=== PATIENT | female | born 1935 | race Caucasian/White ===

== ENCOUNTER → 2017-04-29 | Outpatient (CLI) | payer MEDICARE, BC ==
[2015-08-17 11:48] VITALS: BP 141/77
[~2017-04-29] MED LIST: ACETAMINOPHEN-H1 TA1 PO; ALPRAZOLAM0.25 MG PO; ASPIRIN E.C. 8181 M1 PO; ATIVAN 0.50.5 MG/TAB PO; ATORVASTATIN CA20 MG PO; CALCITONIN200 IU/Act NS; DITROPAN 5MG TAB5 MG PO; DITROPAN XL 5MG5 M1 PO; DULCOLAX PO; DURAGESIC25 MCG/PAT TD; DURAGESIC50 MCG/PAT TD; ED BACLOFEN10 MG PO; EFFEXOR XR37.5 MG/CA PO; ENOXAPARIN40 MG/0.1 IJ; FENTANYL 25 MCG TP; LIDODERM 5% PATC1 EA TP; LISINOPRIL20 MG PO; LOPRESSOR 225 MG/TAB PO; LOVENOX 4040 MG/0.4 SQ; MACRODANTIN50 MG/CA1 PO; METOPROLOL SUCC25 MG PO; METOPROLOL TART25 MG PO; MIRAPEX 0.0.125 MG/T PO; MIRAPEX 0.125MG PO; OSCAL 500MG/VI500 MG PO; PERCOCET 325 MG1 TA2 PO; SENNA PLUS 50 M1 TA1 PO; TOPROL XL 50MG50 MG PO; ULTRAM 50MG TAB50 MG PO; XANAX 0.5MG0.5 MG PO; ZOCOR40 MG PO; ZOFRAN 4MG4 MG/2 ML IM
== END ==
LOC: LAB 13:49
DX: R73.9 Hyperglycemia, unspecified (principal)

== ENCOUNTER → 2017-11-11 | Outpatient (CLI) | payer MEDICARE, BC ==
[~2017-11-11] VITALS: Ht 157.5 cm; Wt 71.9 kg
[2017-11-11 14:41] VITALS: BP 128/72
== END ==
LOC: AMSURD 14:26
DX: I10 Essential (primary) hypertension (principal)

== ENCOUNTER → 2017-11-14 | Outpatient (CLI) | payer MEDICARE, BC ==
[2017-11-11 14:41] VITALS: BP 128/72
[2017-11-14 08:06] LABS: ALBUMIN 4.1 g/dL (3.5-5.0); BUN/CREATININE RATIO 17.5 (6.0-26.0); CALCIUM 9.1 mg/dL (8.4-10.2); POTASSIUM 4.1 mmol/L (3.6-5.0); TOTAL BILIRUBIN 0.7 mg/dL (0.2-1.3); TOTAL PROTEIN 7.7 g/dL (6.3-8.2)
== END ==
LOC: LAB 07:41
PROVIDERS: Family Medicine
DX: E78.2 Mixed hyperlipidemia (principal); R73.09 Other abnormal glucose

== ENCOUNTER 2017-12-16 19:32 | Emergency (ER) | payer MEDICARE, BC ==
[~2017-12-16 19:32] MED LIST changes: +LOPRESSOR 550 MG/TAB PO; +MIRALAX17 GM PO; +MIRAPEX0.25 M1 PO; +NEURONTIN300 MG/CAP PO; +VENLAFAXINE HYD75 MG PO
[2017-12-16] MEDS ORDERED: ASPIRIN E.C. 8181 MG PO (19:50)
[2017-12-16] MEDS ORDERED: LOPRESSOR 550 MG/TAB PO (19:50)
[2017-12-16] MEDS ORDERED: CALCIUM + D3 E1 EACH PO (19:51)
[2017-12-16] MEDS ORDERED: NEURONTIN300 M1 PO (19:51)
[2017-12-16] MEDS ORDERED: DITROPAN XL 5MG5 M1 PO (19:51)
[2017-12-16] MEDS ORDERED: VENLAFAXINE HYD75 MG PO (19:52)
[2017-12-16] MEDS ORDERED: LIPITOR20 M2 PO (19:52)
[2017-12-16] MEDS ORDERED: XANAX0.5 M1 PO (19:53)
[2017-12-16] MEDS ORDERED: MIRAPEX0.25 M1 PO (19:53)
[2017-12-16] MEDS ORDERED: MOTRIN IB200 M1 PO (19:54)
[2017-12-16 20:30] LABS: BASO # 0.1 (0.02-0.10); EOS # 0.2 (0.04-0.40); EOS % 2.9 % (1.0-5.0); HEMATOCRIT 41.2 % (37.0-47.0); HEMOGLOBIN 13.6 g/dL (12.5-16.0); LYMPH# 2.6 (1.50-4.00); MEAN CELL VOLUME 89 fl (78-100); MEAN CORPUSCULAR HEMOGLOBIN 29 pg (27-31); MEAN CORPUSCULAR HGB CONC 33 g/dL (33-37); MEAN PLATELET VOLUME 11.3 fl (7.4-10.4); MONO # 0.8 (0.20-0.80); NEU # 4.7 (1.40-6.50); PLATELET COUNT 240 K/mm3 (130-400); RED BLOOD COUNT 4.65 M/mm3 (4.10-5.30); RED CELL DISTRIBUTION WIDTH 13.6 % (11.5-14.5); WHITE BLOOD COUNT 8.3 K/mm3 (4.8-10.8)
[2017-12-16 20:38] LABS: D-DIMER 0.96 mg/L FEU (0.15-0.50)
[2017-12-16 20:39] LABS: ALBUMIN 3.3 g/dL (3.5-5.0); CALCIUM 9.3 mg/dL (8.4-10.2); POTASSIUM 3.8 mmol/L (3.6-5.0); TOTAL BILIRUBIN 0.5 mg/dL (0.2-1.3)
[2017-12-17 00:10] VITALS: BP 128/74
== END 2017-12-17 00:10 | disposition short-term general hospital (02) ==
LOC: ED 19:32
PROVIDERS: Family Medicine
DX: I24.9 Acute ischemic heart disease, unspecified (principal); I10 Essential (primary) hypertension; E11.9 Type 2 diabetes mellitus without complications; E78.5 Hyperlipidemia, unspecified; Z79.82 Long term (current) use of aspirin; S46.002A Unspecified injury of muscle(s) and tendon(s) of the rotator cuff of left shoulder, initial encounter; W19.XXXA Unspecified fall, initial encounter; Z96.653 Presence of artificial knee joint, bilateral
CPT/HCPCS: Q9967

== ENCOUNTER → 2018-02-02 | Outpatient (CLI) | payer MEDICARE, BC ==
[~2018-02-02] MED LIST changes: +ASPIRIN E.C. 8181 MG PO; +CALCIUM + D3 E1 EACH PO; +LIPITOR20 M2 PO; +MOTRIN IB200 M1 PO; +NEURONTIN300 M1 PO; +XANAX0.5 M1 PO
[2018-02-02 14:31] LABS: BUN/CREATININE RATIO 22.5 (6.0-26.0); CALCIUM 9.5 mg/dL (8.4-10.2); POTASSIUM 4.6 mmol/L (3.6-5.0)
== END ==
LOC: RAD 14:07
PROVIDERS: Internal Medicine Cardiovascular Disease
DX: K44.9 Diaphragmatic hernia without obstruction or gangrene (principal); M43.8X4 Other specified deforming dorsopathies, thoracic region

== ENCOUNTER → 2018-02-08 | Outpatient (CLI) | payer MEDICARE, BC ==
[2018-02-08 15:31] LABS: ALBUMIN 4.1 g/dL (3.5-5.0); BUN/CREATININE RATIO 24.9 (6.0-26.0); CALCIUM 10.1 mg/dL (8.4-10.2); POTASSIUM 4.6 mmol/L (3.6-5.0); TOTAL BILIRUBIN 0.4 mg/dL (0.2-1.3); TOTAL PROTEIN 7.5 g/dL (6.3-8.2)
== END ==
LOC: LAB 14:43
PROVIDERS: Family Medicine
DX: E78.2 Mixed hyperlipidemia (principal); R73.09 Other abnormal glucose; R73.01 Impaired fasting glucose; K76.89 Other specified diseases of liver; K80.20 Calculus of gallbladder without cholecystitis without obstruction

== ENCOUNTER → 2018-02-09 | Outpatient (CLI) | payer MEDICARE, BC | LOC: RAD 09:35 | DX: K76.89 Other specified diseases of liver (principal); K80.20 Calculus of gallbladder without cholecystitis without obstruction ==

== ENCOUNTER → 2018-03-01 | Outpatient (CLI) | payer MEDICARE, BC ==
[2018-03-01 08:36] LABS: BUN/CREATININE RATIO 13.1 (6.0-26.0); CALCIUM 9.2 mg/dL (8.4-10.2); CARBON DIOXIDE 31 mmol/L (22-30); GLUCOSE 134 mg/dL (65-105); POTASSIUM 4.1 mmol/L (3.6-5.0); SODIUM 133 mmol/L (137-145)
== END ==
LOC: LAB 08:10
PROVIDERS: Internal Medicine Cardiovascular Disease
DX: E87.1 Hypo-osmolality and hyponatremia (principal)

== ENCOUNTER → 2018-04-26 | Outpatient (CLI) | payer MEDICARE, BC | LOC: LAB 12:16 | DX: N39.0 Urinary tract infection, site not specified (principal); E11.9 Type 2 diabetes mellitus without complications ==

== ENCOUNTER → 2018-04-28 | Outpatient (CLI) | payer MEDICARE, BC ==
[2018-04-28 14:13] LABS: BUN/CREATININE RATIO 11.8 (6.0-26.0)
== END ==
LOC: LAB 13:21
PROVIDERS: Internal Medicine Cardiovascular Disease
DX: I50.22 Chronic systolic (congestive) heart failure (principal); Z79.899 Other long term (current) drug therapy

== ENCOUNTER → 2018-08-23 | Outpatient (CLI) | payer MEDICARE, BC ==
[~2018-08-23] VITALS: Ht 165.1 cm; Wt 82.7 kg
[~2018-08-23] MED LIST changes: +EFFEXOR XR75 M2 PO; +LASIX20 M1 PO
[2018-08-23 10:45] VITALS: BP 122/72
[2018-08-23 12:06] LABS: CALCIUM 9.2 mg/dL (8.4-10.2); POTASSIUM 4.2 mmol/L (3.6-5.0)
== END ==
LOC: AMSURD 10:27
PROVIDERS: Family Medicine
DX: I11.0 Hypertensive heart disease with heart failure (principal); I50.9 Heart failure, unspecified; I49.9 Cardiac arrhythmia, unspecified; E11.9 Type 2 diabetes mellitus without complications

== ENCOUNTER 2018-09-23 16:27 | Emergency (ER) | payer MEDICARE, BC ==
[~2018-09-23] VITALS: Ht 162.6 cm; Wt 85.5 kg
[~2018-09-23 16:27] MED LIST changes: +COZAAR25 M1 PO; +GLUCOPHAGE PO; +METOPROLOL SUCC25 M1 PO; +PRAMIPEXOLE D0.25 MG PO
[2018-09-23] MEDS ORDERED: FUROSEMIDE40 MG PO (17:00)
[2018-09-23 17:21] LABS: EOS # 0.3 (0.04-0.40); EOS % 3.1 % (1.0-5.0); HEMATOCRIT 41.2 % (37.0-47.0); HEMOGLOBIN 13.4 g/dL (12.5-16.0); MEAN CELL VOLUME 90 fl (78-100); MEAN CORPUSCULAR HEMOGLOBIN 29 pg (27-31); MEAN CORPUSCULAR HGB CONC 33 g/dL (33-37); MEAN PLATELET VOLUME 10.6 fl (7.4-10.4); NEU # 3.9 (1.40-6.50); PLATELET COUNT 266 K/mm3 (130-400); RED BLOOD COUNT 4.58 M/mm3 (4.10-5.30); RED CELL DISTRIBUTION WIDTH 14.1 % (11.5-14.5); WHITE BLOOD COUNT 10.2 K/mm3 (4.8-10.8)
[2018-09-23 17:36] LABS: ALBUMIN 3.9 g/dL (3.5-5.0); CALCIUM 9.9 mg/dL (8.4-10.2); TOTAL BILIRUBIN 0.4 mg/dL (0.2-1.3); TOTAL PROTEIN 6.7 g/dL (6.3-8.2)
[2018-09-23] MEDS ORDERED: ASPIRIN 81M81 MG/TA2 PO (18:44)
[2018-09-23] MEDS ORDERED: POTASSIUM CH2 MEQ/ML PO (18:46)
[2018-09-23] MEDS ORDERED: DITROPAN 5MG TAB5 MG PO (18:47)
[2018-09-23] MEDS ORDERED: GOOD NEIGHBOR P20 M1 PO (20:51)
[2018-09-23 20:55] VITALS: BP 190/97
== END 2018-09-23 20:55 | disposition home or self-care (01) ==
LOC: ED 16:27
PROVIDERS: Family Medicine
DX: K21.9 Gastro-esophageal reflux disease without esophagitis (principal); I11.0 Hypertensive heart disease with heart failure; I50.9 Heart failure, unspecified; E11.9 Type 2 diabetes mellitus without complications; Z79.84 Long term (current) use of oral hypoglycemic drugs; Z79.82 Long term (current) use of aspirin; Z79.899 Other long term (current) drug therapy; E78.5 Hyperlipidemia, unspecified; G25.81 Restless legs syndrome; K80.20 Calculus of gallbladder without cholecystitis without obstruction; F41.9 Anxiety disorder, unspecified
CPT/HCPCS: C9113

== ENCOUNTER → 2018-12-07 | Outpatient (CLI) | payer MEDICARE, BC ==
[~2018-12-07] MED LIST changes: +ASPIRIN 81M81 MG/TA2 PO; +FUROSEMIDE40 MG PO; +GOOD NEIGHBOR P20 M1 PO; +POTASSIUM CH2 MEQ/ML PO
[2018-12-07 08:54] LABS: CALCIUM 9.3 mg/dL (8.4-10.2); POTASSIUM 4.4 mmol/L (3.6-5.0); TOTAL BILIRUBIN 0.6 mg/dL (0.2-1.3); TOTAL PROTEIN 7.3 g/dL (6.3-8.2)
== END ==
LOC: LAB 08:30
PROVIDERS: Family Medicine
DX: I11.0 Hypertensive heart disease with heart failure (principal); I50.9 Heart failure, unspecified; I49.9 Cardiac arrhythmia, unspecified; E11.9 Type 2 diabetes mellitus without complications; E78.2 Mixed hyperlipidemia

== ENCOUNTER 2018-12-21 14:23 | Emergency (ER) | payer MEDICARE, BC ==
[2018-12-21 14:49] LABS: BASO # 0.1 (0.02-0.10); EOS # 0.2 (0.04-0.40); EOS % 2.8 % (1.0-5.0); HEMATOCRIT 45.7 % (37.0-47.0); HEMOGLOBIN 14.6 g/dL (12.5-16.0); LYMPH# 3.3 (1.50-4.00); MEAN CELL VOLUME 88 fl (78-100); MEAN CORPUSCULAR HEMOGLOBIN 28 pg (27-31); MEAN CORPUSCULAR HGB CONC 32 g/dL (33-37); MEAN PLATELET VOLUME 10.7 fl (7.4-10.4); PLATELET COUNT 296 K/mm3 (130-400); RED BLOOD COUNT 5.17 M/mm3 (4.10-5.30); RED CELL DISTRIBUTION WIDTH 13.9 % (11.5-14.5); WHITE BLOOD COUNT 8.7 K/mm3 (4.8-10.8)
[2018-12-21 15:05] LABS: CALCIUM 9.4 mg/dL (8.4-10.2); POTASSIUM 4.6 mmol/L (3.6-5.0)
[2018-12-21 17:40] VITALS: BP 119/72
== END 2018-12-21 17:28 | disposition home or self-care (01) ==
LOC: ED 14:23
PROVIDERS: Nurse Practitioner
DX: S02.19XA Other fracture of base of skull, initial encounter for closed fracture (principal); S02.2XXA Fracture of nasal bones, initial encounter for closed fracture; S62.316A Displaced fracture of base of fifth metacarpal bone, right hand, initial encounter for closed fracture; F41.9 Anxiety disorder, unspecified; I50.9 Heart failure, unspecified; G25.81 Restless legs syndrome; M19.90 Unspecified osteoarthritis, unspecified site; Z79.84 Long term (current) use of oral hypoglycemic drugs; Z79.82 Long term (current) use of aspirin; W01.0XXA Fall on same level from slipping, tripping and stumbling without subsequent striking against object, initial encounter; Y92.009 Unspecified place in unspecified non-institutional (private) residence as the place of occurrence of the external cause

== ENCOUNTER → 2019-01-31 | Outpatient (CLI) | payer MEDICARE, BC | LOC: RAD 10:52 → MAMMO 11:30 | DX: Z13.820 Encounter for screening for osteoporosis (principal); M81.0 Age-related osteoporosis without current pathological fracture ==

== ENCOUNTER → 2019-02-02 | Outpatient (CLI) | payer MEDICARE, BC ==
[2019-02-02 14:37] LABS: HEMATOCRIT 42.6 % (37.0-47.0); HEMOGLOBIN 13.5 g/dL (12.5-16.0); MEAN PLATELET VOLUME 10.5 fl (7.4-10.4); RED BLOOD COUNT 4.71 M/mm3 (4.10-5.30); RED CELL DISTRIBUTION WIDTH 14.5 % (11.5-14.5); WHITE BLOOD COUNT 9.3 K/mm3 (4.8-10.8)
[2019-02-02 14:42] LABS: CALCIUM 9.1 mg/dL (8.4-10.2); POTASSIUM 3.6 mmol/L (3.6-5.0)
[2019-02-03 00:37] LABS: CALCIUM, IONIZED, SERUM 1.26 mmol/L (1.19-1.41)
== END ==
LOC: LAB 14:09
PROVIDERS: Family Medicine
DX: K21.0 Gastro-esophageal reflux disease with esophagitis (principal); E11.9 Type 2 diabetes mellitus without complications; M81.8 Other osteoporosis without current pathological fracture

== ENCOUNTER → 2019-07-26 | Outpatient (CLI) | payer MEDICARE, BC ==
[2019-07-26 09:59] LABS: POTASSIUM 4.1 mmol/L (3.5-5.1)
[2019-07-26 10:00] LABS: CALCIUM 9.4 mg/dL (8.3-10.5)
== END ==
LOC: LAB 09:38
PROVIDERS: Internal Medicine Cardiovascular Disease
DX: Z51.81 Encounter for therapeutic drug level monitoring (principal); Z79.899 Other long term (current) drug therapy

== ENCOUNTER → 2020-04-29 | Outpatient (CLI) | payer MEDICARE, BC ==
[2020-04-29 09:56] LABS: ALBUMIN 3.6 g/dL (3.4-4.8); POTASSIUM 3.7 mmol/L (3.5-5.1)
[2020-04-29 09:57] LABS: CALCIUM 8.7 mg/dL (8.3-10.5)
[2020-04-29 09:59] LABS: TOTAL PROTEIN 6.9 g/dL (6.2-8.1)
[2020-04-29 10:01] LABS: TOTAL BILIRUBIN 0.8 mg/dL (0.2-1.2)
== END ==
LOC: RAD 08:12
PROVIDERS: Family Medicine
DX: M48.061 Spinal stenosis, lumbar region without neurogenic claudication (principal); M51.16 Intervertebral disc disorders with radiculopathy, lumbar region; M41.27 Other idiopathic scoliosis, lumbosacral region; M84.48XA Pathological fracture, other site, initial encounter for fracture

== ENCOUNTER 2020-06-09 15:35 | Emergency (ER) | payer MEDICARE ==
[~2020-06-09] VITALS: Ht 167.6 cm; Wt 71.4 kg
[2020-06-09] MEDS ORDERED: TYLENOL EXTRA500 M2 PO (15:48)
[2020-06-09] MEDS ORDERED: HYDROCODONE BIT1 T45 PO (15:51)
[2020-06-09] MEDS ORDERED: SENOKOT S 50 MG1 TAB PO (15:52)
[2020-06-09] MEDS ORDERED: MIRALAX17 GM PO (15:53)
[2020-06-09] MEDS ORDERED: TOPCARE LAXATIVE5 MG PO (15:54)
[2020-06-09] MEDS ORDERED: MIRAPEX0.25 M1 PO (15:55)
[2020-06-09] MEDS ORDERED: ALENDRONATE SOD70 MG PO (15:56)
[2020-06-09] MEDS ORDERED: MIRAPEX 0.125MG PO (15:58)
[2020-06-09 16:11] LABS: HEMATOCRIT 37.5 % (37.0-47.0); HEMOGLOBIN 12.6 g/dL (12.5-16.0); MEAN CELL VOLUME 88 fl (78-100); MEAN CORPUSCULAR HEMOGLOBIN 30 pg (27-31); MEAN CORPUSCULAR HGB CONC 34 g/dL (33-37); MEAN PLATELET VOLUME 10.2 fl (7.4-10.4); PLATELET COUNT 322 K/mm3 (130-400); RED BLOOD COUNT 4.27 M/mm3 (4.10-5.30); WHITE BLOOD COUNT 8.7 K/mm3 (4.8-10.8)
[2020-06-09 16:15] LABS: RED CELL DISTRIBUTION WIDTH 21.2 % (11.5-14.5)
[2020-06-09 16:19] LABS: ALBUMIN 3.2 g/dL (3.4-4.8)
[2020-06-09 16:20] LABS: CALCIUM 8.3 mg/dL (8.3-10.5)
[2020-06-09 16:21] LABS: LYMPHOCYTE 30 % (20-51); MONOCYTE 12 % (3-10); NEUTROPHILS 55 % (42-75)
[2020-06-09 16:22] LABS: TOTAL PROTEIN 6.2 g/dL (6.2-8.1)
[2020-06-09 16:23] LABS: POTASSIUM 6.6 mmol/L (3.5-5.1); TOTAL BILIRUBIN 0.7 mg/dL (0.2-1.2)
[2020-06-09 18:00] VITALS: BP 112/62
== END 2020-06-09 18:00 | disposition other institution (70) ==
LOC: ED 15:35
PROVIDERS: Nurse Practitioner Primary Care
DX: E87.5 Hyperkalemia (principal); E87.1 Hypo-osmolality and hyponatremia; E86.0 Dehydration; N17.9 Acute kidney failure, unspecified; M54.31 Sciatica, right side; I21.9 Acute myocardial infarction, unspecified; I11.0 Hypertensive heart disease with heart failure; E11.8 Type 2 diabetes mellitus with unspecified complications; K21.9 Gastro-esophageal reflux disease without esophagitis; F41.9 Anxiety disorder, unspecified; Z79.84 Long term (current) use of oral hypoglycemic drugs; Z79.82 Long term (current) use of aspirin
CPT/HCPCS: J1815; J7030

== ENCOUNTER → 2020-06-17 | Outpatient (CLI) | payer MEDICARE ==
[2020-06-13 10:06] VITALS: BP 115/69
[~2020-06-17] MED LIST changes: +ALENDRONATE SOD70 MG PO; +FUROSEMIDE20 MG PO; +HYDROCODONE BIT1 T45 PO; +SENOKOT S 50 MG1 TAB PO; +TOPCARE LAXATIVE5 MG PO; +TYLENOL EXTRA500 M2 PO
[2020-06-17 11:41] LABS: POTASSIUM 3.9 mmol/L (3.5-5.1)
[2020-06-17 11:42] LABS: CALCIUM 7.6 mg/dL (8.3-10.5)
== END ==
LOC: LAB 11:17
PROVIDERS: Family Medicine
DX: I10 Essential (primary) hypertension (principal)

== ENCOUNTER → 2020-06-30 | Outpatient (CLI) | payer MEDICARE ==
[2020-06-13 10:06] VITALS: BP 115/69
[2020-06-30 11:45] LABS: POTASSIUM 4.6 mmol/L (3.5-5.1)
[2020-06-30 11:46] LABS: CALCIUM 7.9 mg/dL (8.3-10.5)
== END ==
LOC: LAB 11:30
PROVIDERS: Family Medicine
DX: I11.0 Hypertensive heart disease with heart failure (principal); I50.9 Heart failure, unspecified

== ENCOUNTER → 2020-07-15 | Outpatient (CLI) | payer MEDICARE ==
[2020-06-13 10:06] VITALS: BP 115/69
[2020-07-15 11:00] LABS: POTASSIUM 4.7 mmol/L (3.5-5.1)
[2020-07-15 11:02] LABS: CALCIUM 8.6 mg/dL (8.3-10.5)
== END ==
LOC: LAB 10:40
PROVIDERS: Family Medicine
DX: I10 Essential (primary) hypertension (principal); E11.9 Type 2 diabetes mellitus without complications

== ENCOUNTER → 2021-02-06 | Outpatient (CLI) | payer MEDICARE ==
[2020-06-13 10:06] VITALS: BP 115/69
[2021-02-06 09:59] LABS: POTASSIUM 4.6 mmol/L (3.5-5.1)
[2021-02-06 10:00] LABS: CALCIUM 9.3 mg/dL (8.3-10.5)
== END ==
LOC: MAMMO 02-03 11:30
PROVIDERS: Family Medicine
DX: M81.8 Other osteoporosis without current pathological fracture (principal); I10 Essential (primary) hypertension

== ENCOUNTER → 2021-04-24 | Outpatient (CLI) | payer MEDICARE ==
[2021-04-24 15:06] LABS: POTASSIUM 4.5 mmol/L (3.5-5.1)
[2021-04-24 15:08] LABS: CALCIUM 8.9 mg/dL (8.3-10.5)
== END ==
LOC: RAD 14:42
PROVIDERS: Family Medicine
DX: I50.9 Heart failure, unspecified (principal); E11.9 Type 2 diabetes mellitus without complications

== ENCOUNTER → 2021-11-06 | Outpatient (CLI) | payer MEDICARE ==
[2021-11-06 10:20] LABS: POTASSIUM 4.7 mmol/L (3.5-5.1)
[2021-11-06 10:22] LABS: CALCIUM 9.6 mg/dL (8.3-10.5)
[2021-11-06 10:23] LABS: TOTAL PROTEIN 6.6 g/dL (6.2-8.1)
[2021-11-06 10:25] LABS: TOTAL BILIRUBIN 0.4 mg/dL (0.2-1.2)
== END ==
LOC: LAB 08:43
PROVIDERS: Family Medicine
DX: E11.9 Type 2 diabetes mellitus without complications (principal); E78.2 Mixed hyperlipidemia

== ENCOUNTER 2022-01-24 13:03 | Emergency (ER) | payer MEDICARE ==
[~2022-01-24] VITALS: Ht 167.6 cm; Wt 0.2 kg
[2022-01-24] MEDS ORDERED: OMEPRAZOLE40 MG PO (13:21)
[2022-01-24] MEDS ORDERED: LOSARTAN POTASS25 MG PO (13:21)
[2022-01-24] MEDS ORDERED: POTASSIUM CHLO20 ME4 PO (13:21)
[2022-01-24] MEDS ORDERED: ALPRAZOLAM0.5 MG PO (13:22)
[2022-01-24] MEDS ORDERED: VENLAFAXINE HCL75 M3 PO (13:22)
[2022-01-24 14:29] LABS: BASO # 0.11 K/mm3 (0.02-0.10); EOS # 0.26 K/mm3 (0.04-0.40); EOS % 2.7 % (1.0-5.0); LYMPH# 4.63 K/mm3 (1.50-4.00); MEAN CELL VOLUME 82 fl (78-100); MEAN CORPUSCULAR HEMOGLOBIN 24 pg (27-31); MEAN CORPUSCULAR HGB CONC 29 g/dL (33-37); MEAN PLATELET VOLUME 10.6 fl (7.4-10.4); MONO # 0.83 K/mm3 (0.20-0.80); NEU # 3.93 K/mm3 (1.40-6.50); PLATELET COUNT 343 K/mm3 (130-400); RED BLOOD COUNT 4.13 M/mm3 (4.10-5.30); RED CELL DISTRIBUTION WIDTH 16.9 % (11.5-14.5); WHITE BLOOD COUNT 9.8 K/mm3 (4.8-10.8)
[2022-01-24 14:39] LABS: ALBUMIN 3.7 g/dL (3.4-4.8)
[2022-01-24 14:40] LABS: POTASSIUM 4.6 mmol/L (3.5-5.1)
[2022-01-24 14:41] LABS: CALCIUM 8.9 mg/dL (8.3-10.5)
[2022-01-24 14:44] LABS: TOTAL BILIRUBIN 0.3 mg/dL (0.2-1.2)
[2022-01-24 17:50] VITALS: BP 136/74
== END 2022-01-24 18:00 | disposition home or self-care (01) ==
LOC: ED 13:03
PROVIDERS: Family Medicine
DX: I95.1 Orthostatic hypotension (principal); E86.9 Volume depletion, unspecified; R53.81 Other malaise
CPT/HCPCS: J7120

== ENCOUNTER → 2022-02-24 | Outpatient (CLI) | payer MEDICARE ==
[~2022-02-24] MED LIST changes: +ALPRAZOLAM0.5 MG PO; +LOSARTAN POTASS25 MG PO; +OMEPRAZOLE40 MG PO; +POTASSIUM CHLO20 ME4 PO; +VENLAFAXINE HCL75 M3 PO
== END ==
LOC: LAB 11:36
DX: E11.9 Type 2 diabetes mellitus without complications (principal); E78.2 Mixed hyperlipidemia; I10 Essential (primary) hypertension; I50.9 Heart failure, unspecified

== ENCOUNTER → 2022-12-17 | Outpatient (CLI) | payer MEDICARE ==
[2022-12-17 09:32] LABS: HEMATOCRIT 35.3 % (37.0-47.0); HEMOGLOBIN 10.2 g/dL (12.5-16.0); MEAN CELL VOLUME 76 fl (78-100); MEAN CORPUSCULAR HEMOGLOBIN 22 pg (27-31); MEAN CORPUSCULAR HGB CONC 29 g/dL (33-37); MEAN PLATELET VOLUME 11.4 fl (7.4-10.4); PLATELET COUNT 348 K/mm3 (130-400); RED BLOOD COUNT 4.65 M/mm3 (4.10-5.30); RED CELL DISTRIBUTION WIDTH 20.2 % (11.5-14.5); WHITE BLOOD COUNT 9.1 K/mm3 (4.8-10.8)
[2022-12-17 09:41] LABS: POTASSIUM 4.1 mmol/L (3.5-5.1)
[2022-12-17 09:42] LABS: CALCIUM 9.2 mg/dL (8.3-10.5)
[2022-12-17 10:40] LABS: BAND 1 % (0-10); LYMPHOCYTE 49 % (20-51); MONOCYTE 3 % (3-10); NEUTROPHILS 45 % (42-75)
[2022-12-17 10:42] LABS: HYPOCHROMIA 2+
[2022-12-17 10:43] LABS: TARGET CELLS 1+
== END ==
LOC: LAB 08:58
PROVIDERS: Family Medicine
DX: D50.9 Iron deficiency anemia, unspecified (principal); I10 Essential (primary) hypertension; E11.9 Type 2 diabetes mellitus without complications; E78.2 Mixed hyperlipidemia

== ENCOUNTER 2023-08-08 12:38 | Emergency (ER) | payer MEDICARE ==
[~2023-08-08] VITALS: Wt 71.8 kg
[2023-08-08] MEDS ORDERED: AMIODARONE200 MG PO (13:11)
[2023-08-08] MEDS ORDERED: NATURAL IRON65 MG PO (13:12)
[2023-08-08] MEDS ORDERED: MAGNESIUM OXID400 MG PO (13:12)
[2023-08-08] MEDS ORDERED: LASIX20 M1 PO (13:12)
[2023-08-08] MEDS ORDERED: ELIQUIS5 MG PO (13:12)
[2023-08-08] MEDS ORDERED: LEVOTHYROXIN0.025 MG PO (13:13)
[2023-08-08] MEDS ORDERED: LOPRESSOR 225 MG/TAB PO (13:13)
[2023-08-08] MEDS ORDERED: ALDACTONE 25MG25 MG PO (13:13)
[2023-08-08] MEDS ORDERED: TRAMADOL 50 MG TAB PO (13:14)
[2023-08-08 14:19] LABS: BASO # 0.03 K/mm3 (0.02-0.10); EOS # 0.07 K/mm3 (0.04-0.40); EOS % 0.6 % (1.0-5.0); HEMATOCRIT 38.6 % (37.0-47.0); HEMOGLOBIN 12.6 g/dL (12.5-16.0); LYMPH# 2.28 K/mm3 (1.50-4.00); MEAN CELL VOLUME 91 fl (78-100); MEAN CORPUSCULAR HEMOGLOBIN 30 pg (27-31); MEAN CORPUSCULAR HGB CONC 33 g/dL (33-37); MEAN PLATELET VOLUME 10.2 fl (7.4-10.4); MONO # 1.04 K/mm3 (0.20-0.80); NEU # 9.01 K/mm3 (1.40-6.50); PLATELET COUNT 257 K/mm3 (130-400); RED BLOOD COUNT 4.26 M/mm3 (4.10-5.30); WHITE BLOOD COUNT 12.5 K/mm3 (4.8-10.8)
[2023-08-08 14:25] LABS: ALBUMIN 3.6 g/dL (3.4-4.8)
[2023-08-08 14:27] LABS: CALCIUM 8.8 mg/dL (8.3-10.5)
[2023-08-08 14:28] LABS: TOTAL PROTEIN 5.8 g/dL (6.2-8.1)
[2023-08-08 14:30] LABS: TOTAL BILIRUBIN 0.3 mg/dL (0.2-1.2)
[2023-08-08 16:15] LABS: PH-URINE 6.5 (5.0 - 8.0); URINE APPEARANCE CLEAR; URINE BILIRUBIN NEGATIVE (NEGATIVE); URINE BLOOD NEGATIVE (NEGATIVE); URINE COLOR YELLOW; URINE GLUCOSE NEGATIVE (NEGATIVE); URINE KETONE NEGATIVE (NEGATIVE); URINE LEUKOCYTE ESTERASE 1+ (NEGATIVE); URINE NITRATE NEGATIVE (NEGATIVE); URINE PROTEIN(semi-quant) NEGATIVE (NEGATIVE); URINE UROBILINOGEN NORMAL (NORMAL)
[2023-08-08 17:32] LABS: CALCIUM 8.4 mg/dL (8.3-10.5)
[2023-08-08 20:20] VITALS: BP 142/66
== END 2023-08-08 20:20 | disposition home or self-care (01) ==
LOC: ED 12:38
PROVIDERS: Physician Assistant
DX: S22.42XA Multiple fractures of ribs, left side, initial encounter for closed fracture (principal); E87.1 Hypo-osmolality and hyponatremia; W18.30XA Fall on same level, unspecified, initial encounter; W22.03XA Walked into furniture, initial encounter
CPT/HCPCS: J7030; Q9967